=== PATIENT | male | born 1965 | race Caucasian/White ===

== ENCOUNTER 2021-04-19 12:10 | Emergency (ER) | payer BC ==
[2021-04-19 13:54] LABS: Absolute Lymphocytes (CBC) 1.2 K/uL (0.7-4.9); Basophils % 0.3 % (0-1.3); Hematocrit 50.6 % (39.6-49.0); Lymphocytes % 9.1 % (15.3-44.8); MPV 7.3 fL (7.6-11.3); RBC Red Blood Cell Count 5.79 M/uL (4.33-5.43)
[2021-04-19 14:00] LABS: Albumin 4.6 g/dL (3.4-5.0); Bilirubin Direct 0.2 mg/dL (0-0.2); Bilirubin Total 0.7 mg/dL (0.2-1.0); Potassium 4.2 mmol/L (3.5-5.1); Protein, Total 8.7 g/dL (6.4-8.2)
[2021-04-19] MEDS ORDERED: ONDANSETRON 4 MG/2 ML VIAL ONE (14:24)
[2021-04-19] MEDS ORDERED: MEPERIDINE HCL 25 MG/ML SYR ONE (14:25)
[2021-04-19] MEDS ORDERED: NA CHLORIDE 0.9% 500 ML ONE (14:30)
[2021-04-19] MEDS ORDERED: METRONIDAZOLE 500mg IVPB 500 MG/100 ML BAG IV ONE (14:31)
[2021-04-19] MEDS ORDERED: CIPROFLOXACIN 400mg IV 400 MG/200 ML BAG IV ONE (14:31)
[2021-04-19] MEDS ORDERED: MORPHINE 4 MG/ML SYR ONE (15:23)
[2021-04-19] MEDS ORDERED: TAMSULOSIN 0.4 MG SR CAP ONE (16:19)
[2021-04-19] MEDS ORDERED: MAGNESIUM SULFATE 1 gm IVPB 1 GM/100 ML BAG IV ONE (16:19)
[2021-04-19 16:59] LABS: Urine Bacteria <20 /HPF (NONE SEEN); Urine RBC <5 /HPF (NONE SEEN)
--- NOTE | 2021-04-19 17:20 | ER ---
Nurse's Notes [facility] Name: Huan Daley Age: 56 yrs Sex: Male : 1965 Arrival Date: 04/19/2021 Time: 12:12 Bed 15 Private MD: Diagnosis: Calculus of ureter;Vomiting Presentation: 04/19 13:22 Chief complaint: Patient states: Left sided abdominal pain upper quadrant then went to kg lower quadrant x 2 days. Coronavirus screen: Client denies travel out of the [place] in the last 14 days. At this time, unable to obtain information related to travel outside the [place] At this time, the client does not indicate any symptoms associated with coronavirus-19. Ebola Screen: Patient negative for fever greater than or equal to 101.5 degrees Fahrenheit, and additional compatible Ebola Virus Disease symptoms Patient denies exposure to infectious person. Patient denies travel to an Ebola-affected area in the 21 days before illness onset. Initial Sepsis Screen: Does the patient meet any 2 criteria? No. Patient's initial sepsis screen is negative. Does the patient have a suspected source of infection? No. Patient's initial sepsis screen is negative. Risk Assessment: Do you want to hurt yourself or someone else? Patient reports no desire to harm self or others. Onset of symptoms was April 18, 2021. 13:22 Method Of Arrival: Ambulatory kg 13:22 Acuity: JESS 3 kg Triage Assessment: 13:25 General: Appears in no apparent distress. Behavior is calm, cooperative, appropriate kg for age, quiet. Pain: Complains of pain in suprapubic area, left upper quadrant, right lower quadrant and left lower quadrant Pain currently is 10 out of 10 on a pain scale. at worst was 10 out of 10 on a pain scale. level that patient reports is acceptable is 5 out of 10 on a pain scale. GI: Reports lower abdominal pain, upper abdominal pain, nausea. Historical: - Allergies: 13:25 No Known Allergies; kg - Home Meds: 13:25 None [Active]; kg - PMHx: 13:25 Hypertensive disorder; Hypercholesterolemia; kg - PSHx: 13:25 None; kg - Immunization history:: Adult Immunizations up to date, Client reports receiving the Jeffrey \T\ Jeffrey single-dose vaccine. Date received December 2020. - Social history:: Smoking status: Patient reports the use of cigarette tobacco products, denies chronic smoking, but will smoke occasionally. - Family history:: not pertinent. - Hospitalizations: : No recent hospitalization is reported. Screenin:48 Abuse screen: Denies threats or abuse. Nutritional screening: No deficits noted. ll1 Tuberculosis screening: No symptoms or risk factors identified. Fall Risk IV access (20 points). Total Guerra Fall Scale indicates No Risk (0-24 pts). Assessment: 13:30 General: Appears uncomfortable, Behavior is calm, cooperative, appropriate for age. ll1 Pain: Complains of pain in abdomen and left lower quadrant and left upper quadrant Quality of pain is described as aching. Neuro: No deficits noted. Cardiovascular: No deficits noted. Respiratory: No deficits noted. GI: Abdomen is round Bowel sounds present X 4 quads. Abd is soft and non tender X 4 quads. Reports lower abdominal pain, upper abdominal pain, nausea. : No deficits noted. 14:30 Reassessment: No changes from previously documented assessment. Patient and/or family ll1 updated on plan of care and expected duration. Pain level reassessed. Patient is alert, oriented x 3, equal unlabored respirations, skin warm/dry/pink. 15:30 Reassessment: No changes from previously documented assessment. Patient and/or family ll1 updated on plan of care and expected duration. Pain level reassessed. 16:30 Reassessment: No changes from previously documented assessment. Patient and/or family ll1 updated on plan of care and expected duration. Pain level reassessed. Patient is alert, oriented x 3, equal unlabored respirations, skin warm/dry/pink. 17:30 Reassessment: No changes from previously documented assessment. Patient and/or family ll1 updated on plan of care and expected duration. Pain level reassessed. Patient is alert, oriented x 3, equal unlabored respirations, skin warm/dry/pink. Patient states feeling better. Vital Signs: 13:22 Pulse 85; Resp 20; Temp 96.7(TE); Pulse Ox 98% on R/A; Weight 108.86 kg (R); Height 6 kg ft. 2 in. (187.96 cm) (R); Pain 10/10; 14:00 BP 187 / 114; ll1 14:20 BP 155 / 109; Pulse 79; Resp 18; ll1 17:46 BP 133 / 92; Pulse 85; Resp 18; Temp 97.0; Pulse Ox 98% ; ll1 13:22 Body Mass Index 30.81 (108.86 kg, 187.96 cm) kg ED Course: 12:12 Patient arrived in ED. mr 13:25 Triage completed. kg 13:25 Arm band placed on right wrist. kg 13:34 Yoni Vizcarra MD is Attending Physician. rn 13:36 Inserted saline lock: 20 gauge in right antecubital area, using aseptic technique. kg 13:53 CT Abd/Pelvis - IV Contrast Only In Process Unspecified. EDMS 13:59 Nereida Greene, SHYANNE is Primary Nurse. ll1 14:08 Patient has correct armband on for positive identification. Bed in low position. Call sv light in reach. 17:19 Salazar Huerta MD is Referral Physician. rn 17:48 No provider procedures requiring assistance completed. IV discontinued, intact, ll1 bleeding controlled, No redness/swelling at site. Pressure dressing applied. Administered Medications: 14:08 Drug: Zofran (Ondansetron) 4 mg Route: IVP; Site: right antecubital; ll1 14:57 Follow up: Response: No adverse reaction ll1 14:08 Drug: Demerol (meperidine) 25 mg Route: IVP; Site: right antecubital; ll1 14:57 Follow up: Response: No adverse reaction ll1 14:09 Drug: Flagyl (metroNIDAZOLE) 500 mg Volume: 100 ml; Route: IVPB; Rate: 200 ml/hr; ll1 Infused Over: 30 mins; Site: right antecubital; 14:56 Follow up: Response: No adverse reaction; IV Status: Completed infusion; IV Intake: ll1 100ml 14:09 Drug: NS 0.9% 500 ml Route: IV; Rate: bolus; Site: right antecubital; ll1 14:56 Follow up: Response: No adverse reaction; IV Status: Completed infusion; IV Intake: ll1 500ml 14:56 Drug: Cipro (ciprofloxacin) 400 mg Volume: 200 ml; Route: IVPB; Infused Over: 60 mins; ll1 Site: right antecubital; 16:08 Follow up: Response: No adverse reaction; IV Status: Completed infusion; IV Intake: ll1 200ml 15:05 Drug: morphine 4 mg Route: IVP; Site: right antecubital; ll1 16:08 Follow up: Response: No adverse reaction ll1 16:08 Drug: Magnesium Sulfate 1 grams Route: IVPB; Infused Over: 1 hrs; Site: right ll1 antecubital; 17:11 Follow up: Response: No adverse reaction; IV Status: Completed infusion; IV Intake: ll1 100ml 16:08 Drug: Flomax (tamsulosin) 0.4 mg Route: PO; ll1 17:10 Follow up: Response: No adverse reaction ll1 Intake: 14:56 IV: 500ml; Total: 500ml. ll1 14:56 IV: 100ml; Total: 600ml. ll1 16:08 IV: 200ml; Total: 800ml. ll1 17:11 IV: 100ml; Total: 900ml. 1 Outcome: 17:20 Discharge ordered by . rn 17:51 Discharged to home ambulatory. 1 17:51 Condition: stable 17:51 Discharge instructions given to patient, Instructed on discharge instructions, follow up and referral plans. medication usage, Demonstrated understanding of instructions, follow-up care, medications, Prescriptions given X 3. 17:51 Patient left the ED. 1 Signatures: Dispatcher [employer] EDAilyn Crain RN RN sv Rivera, Mary mr oYni Vizcarra MD MD rn Lewis, Lynsay, RN RN 1 Samaria Allen RN RN kg
--- NOTE | 2021-04-19 17:20 | EDPHYS ---
Physician Documentation [facility] Name: Huan Daley Age: 56 yrs Sex: Male : 1965 Arrival Date: 04/19/2021 Time: 12:12 Bed 15 Private MD: ED Physician Yoni Vizcarra HPI: 04/19 14:04 This 56 yrs old Male presents to ER via Ambulatory with complaints of rn Abdominal Pain, Vomiting. 14:04 The patient presents to the emergency department with nausea, vomiting, abdominal pain. rn Onset: The symptoms/episode began/occurred yesterday. Possible causes: unknown. The symptoms are aggravated by movement, pressure, The symptoms are alleviated by nothing. Associated signs and symptoms: Pertinent positives: abdominal pain, nausea, vomiting, Pertinent negatives: GI bleeding. Severity of symptoms: At their worst the symptoms were moderate in the emergency department the symptoms have improved. The patient has not experienced similar symptoms in the past. The patient has not recently seen a physician. Patient reports severe abdominal pain yesterday, unable to go into work, improved but returned today, but not as bad. Reports nausea and vomiting, but denies diarrhea or blood in stool. States this is never happened before. No urinary symptoms.. Historical: - Allergies: 13:25 No Known Allergies; kg - Home Meds: 13:25 None [Active]; kg - PMHx: 13:25 Hypertensive disorder; Hypercholesterolemia; kg - PSHx: 13:25 None; kg - Immunization history:: Adult Immunizations up to date, Client reports receiving the Jeffrey \T\ Jeffrey single-dose vaccine. Date received December 2020. - Social history:: Smoking status: Patient reports the use of cigarette tobacco products, denies chronic smoking, but will smoke occasionally. - Family history:: not pertinent. - Hospitalizations: : No recent hospitalization is reported. ROS: 14:04 Constitutional: Negative for fever, chills, and weight loss, Eyes: Negative for injury, rn pain, redness, and discharge, ENT: Negative for injury, pain, and discharge, Neck: Negative for injury, pain, and swelling, Cardiovascular: Negative for chest pain, palpitations, and edema, Respiratory: Negative for shortness of breath, cough, wheezing, and pleuritic chest pain, Abdomen/GI: Negative for diarrhea, and constipation, Back: Negative for injury and pain, : Negative for injury, bleeding, discharge, and swelling, MS/Extremity: Negative for injury and deformity, Skin: Negative for injury, rash, and discoloration, Neuro: Negative for headache, numbness, tingling, and seizure. 14:04 All other systems are negative. Exam: 14:04 Constitutional: This is a well developed, well nourished patient who is awake, alert, rn seems a little uncomfortable Head/Face: Normocephalic, atraumatic. Eyes: Pupils equal round and reactive to light, extra-ocular motions intact. Lids and lashes normal. Conjunctiva and sclera are non-icteric and not injected. Cornea within normal limits. Periorbital areas with no swelling, redness, or edema. ENT: Dry mucous membranes, no stridor Cardiovascular: Regular rate and rhythm. No pulse deficits. Respiratory: Lungs have equal breath sounds bilaterally, clear to auscultation and percussion. No rales, rhonchi or wheezes noted. No increased work of breathing, no retractions or nasal flaring. Abdomen/GI: Soft, non-tender, with normal bowel sounds. No distension or tympany. No guarding or rebound. No evidence of tenderness throughout. Skin: Warm, dry, no cellulitis or cyanosis MS/ Extremity: Pulses equal, no cyanosis. Neuro: Awake and alert, GCS 15 Vital Signs: 13:22 Pulse 85; Resp 20; Temp 96.7(TE); Pulse Ox 98% on R/A; Weight 108.86 kg (R); Height 6 kg ft. 2 in. (187.96 cm) (R); Pain 10/10; 14:00 BP 187 / 114; ll1 14:20 BP 155 / 109; Pulse 79; Resp 18; ll1 17:46 BP 133 / 92; Pulse 85; Resp 18; Temp 97.0; Pulse Ox 98% ; ll1 13:22 Body Mass Index 30.81 (108.86 kg, 187.96 cm) kg MDM: 14:03 Patient medically screened. rn 17:15 Differential diagnosis: Nonspecific abd pain, gastritis, appendicitis, diverticulitis, rn viral gastroenteritis, gastroenteritis, Kidney stone. Data reviewed: vital signs, nurses notes, lab test result(s), radiologic studies, CT scan, and as a result, I will discharge patient. Counseling: I had a detailed discussion with the patient and/or guardian regarding: the historical points, exam findings, and any diagnostic results supporting the discharge/admit diagnosis, lab results, radiology results, the need for outpatient follow up, to return to the emergency department if symptoms worsen or persist or if there are any questions or concerns that arise at home. Response to treatment: the patient's symptoms have markedly improved after treatment, the patient's condition has returned to base line, the patient is now symptom free, patient is well hydrated. and as a result, I will discharge patient. Special discussion: I discussed with the patient/guardian in detail that at this point there is no indication for admission to the hospital. It is understood, however, that if the symptoms persist or worsen the patient needs to return immediately for re-evaluation. Based on the history and exam findings, there is no indication for further emergent testing or inpatient evaluation. I discussed with the patient/guardian the need to see the urologist for further evaluation of the symptoms. ED course: Patient markedly improved, 5 mm left ureteral stone seems to have dropped into the bladder as pain now nonexistent. Reports back pain is entirely gone just feels a little sore in the left abdomen.. 04/19 13:28 Order name: Basic Metabolic Panel; Complete Time: 14:03 kg 04/19 13:28 Order name: CBC with Diff; Complete Time: 14:03 kg 04/19 13:28 Order name: Hepatic Function; Complete Time: 14:03 kg 04/19 13:28 Order name: Lipase; Complete Time: 14:03 kg 04/19 15:42 Order name: Urine Culture rn 04/19 15:42 Order name: Urine Microscopic Only; Complete Time: 17:04 rn 04/19 13:35 Order name: CT Abd/Pelvis - IV Contrast Only rn 04/19 13:28 Order name: IV Saline Lock; Complete Time: 13:59 kg 04/19 13:28 Order name: Labs collected and sent; Complete Time: 13:59 kg 04/19 15:42 Order name: Urine Dipstick-Ancillary (obtain specimen); Complete Time: 17:11 rn Administered Medications: 14:08 Drug: Zofran (Ondansetron) 4 mg Route: IVP; Site: right antecubital; ll1 14:57 Follow up: Response: No adverse reaction ll1 14:08 Drug: Demerol (meperidine) 25 mg Route: IVP; Site: right antecubital; ll1 14:57 Follow up: Response: No adverse reaction ll1 14:09 Drug: Flagyl (metroNIDAZOLE) 500 mg Volume: 100 ml; Route: IVPB; Rate: 200 ml/hr; ll1 Infused Over: 30 mins; Site: right antecubital; 14:56 Follow up: Response: No adverse reaction; IV Status: Completed infusion; IV Intake: ll1 100ml 14:09 Drug: NS 0.9% 500 ml Route: IV; Rate: bolus; Site: right antecubital; ll1 14:56 Follow up: Response: No adverse reaction; IV Status: Completed infusion; IV Intake: ll1 500ml 14:56 Drug: Cipro (ciprofloxacin) 400 mg Volume: 200 ml; Route: IVPB; Infused Over: 60 mins; ll1 Site: right antecubital; 16:08 Follow up: Response: No adverse reaction; IV Status: Completed infusion; IV Intake: ll1 200ml 15:05 Drug: morphine 4 mg Route: IVP; Site: right antecubital; ll1 16:08 Follow up: Response: No adverse reaction ll1 16:08 Drug: Magnesium Sulfate 1 grams Route: IVPB; Infused Over: 1 hrs; Site: right ll1 antecubital; 17:11 Follow up: Response: No adverse reaction; IV Status: Completed infusion; IV Intake: ll1 100ml 16:08 Drug: Flomax (tamsulosin) 0.4 mg Route: PO; ll1 17:10 Follow up: Response: No adverse reaction ll1 Disposition Summary: 04/19/21 17:20 Discharge Ordered Location: Home rn Problem: new rn Symptoms: have improved rn Condition: Stable rn Diagnosis - Calculus of ureter rn - Vomiting rn Followup: rn - With: Salazar Huerta MD - When: As needed - Reason: Recheck today's complaints, Re-evaluation by your physician Discharge Instructions: - Discharge Summary Sheet rn - Kidney Stones rn - Renal Colic rn - Dietary Guidelines to Help Prevent Kidney Stones rn Forms: - Medication Reconciliation Form rn - Thank You Letter rn - Antibiotic decision unit rn - Prescription Opioid Use rn Prescriptions: - ondansetron 4 mg Oral tablet,disintegrating - place 1 tablet by TRANSLINGUAL route every 8 hours As needed; 20 tablet; rn Refills: 0, Product Selection Permitted - tamsulosin 0.4 mg Oral capsule - take 1 capsule by ORAL route once daily As needed Stop taking once you feel you rn have passed your kidney stone, can make you feel lightheaded and dizzy; 10 capsule; Refills: 0, Product Selection Permitted - Tramadol 50 mg Oral Tablet - take 1 tablet by ORAL route every 8 hours as needed; 12 tablet; Refills: 0, rn Product Selection Permitted Signatures: Dispatcher [employer] Yoni Rodriguez MD MD rn Lewis, Lynsay RN RN ll1 Samaria Allen RN RN kg
[2021-04-19 17:59] VITALS: O2SAT 98
[2021-04-19 18:02] VITALS: BP 133/92; TEMP 97
[2021-04-19 22:40] LABS: Urine Blood Trace-intact (Negative); Urine Glucose Negative (Negative); Urine Protein 1+ (Negative); Urine Specific Gravity 1.015 (1.005-1.030)
--- NOTE | 2021-04-20 08:02 | RAD REPORT ---
EXAM DESCRIPTION: CT - Abdomen Pelvis W Contrast - 04/19/2021 10:37 pm CLINICAL HISTORY: left sided abd pain;Abd pain Prolonged imaging system malfunctions precluded earlier dictation. Hospital phone system was also mal functioning. Findings were telephoned using cell phones to the ER clinician at the time of the study. COMPARISON: No comparisons TECHNIQUE: Biphasic, helical CT imaging of the abdomen and pelvis was performed following 100 ml non -ionic IV contrast. No oral contrast. All CT scans are performed using dose optimization technique as appropriate and may include automated exposure control or mA/KV adjustment according to patient size. FINDINGS: No suspicious findings in the lung bases. Mild diffuse fatty infiltration of a normal size liver. No portal vein abnormality. Spleen and pancre as show no suspicious findings. Gallbladder and biliary tree are also without suspicious finding. Gal lstones can be occult on CT imaging. Mild left-sided hydronephrosis is present secondary to a 5 mm in the mid left ureter stone. This resu lts in delayed function on the left with edematous left kidney. No other obstructing or nonobstructin g calculi. No pyelonephritis or acute parenchymal process. No bladder abnormalities. No adrenal abnor malities. Prominent prostate gland is present projecting into the bladder base. Correlation can be ma de with PSA values. No dilated bowel loops or bowel wall thickening. No free air, free fluid or inflammatory stranding. No hernia, mass or bulky lymphadenopathy. No suspicious bony findings. IMPRESSION: Mild left-sided hydronephrosis secondary to a 5 mm mid left ureter stone. Prominent prostate gland projecting into the bladder base. Correlation can be made with PSA values.
== END 2021-04-19 17:51 | disposition home or self-care (01) ==
LOC: ER 12:10
DX: N20.1 Calculus of ureter (principal); I10 Essential (primary) hypertension; F17.210 Nicotine dependence, cigarettes, uncomplicated
CPT/HCPCS: 96365; 96367; 87088; 85025; 87086; 80048; 36415; 82565; 80076; 83690; 74177; 96375; 99284; Q9967; J3475; J2175; J7040; J2405; J0744; 81003; 81015